=== PATIENT | female | born 1935 | race Two or more races ===

== ENCOUNTER 2017-10-15 13:05 | Emergency (ER) | payer MEDICARE ==
[~2017-10-15] VITALS: Ht 154.9 cm; Wt 63.0 kg
[~2017-10-15 13:05] MED LIST: AMLO5TAB2 PO; FURO-93 PO; OMEP-110 PO; POTA20TA6 PO
[2017-10-15 13:06] VITALS: BP 178/90
== END 2017-10-15 14:44 | disposition home or self-care (01) ==
LOC: ED 14:43
DX: S30.0XXA Contusion of lower back and pelvis, initial encounter (principal); S39.012A Strain of muscle, fascia and tendon of lower back, initial encounter; S09.90XA Unspecified injury of head, initial encounter; M51.36 Other intervertebral disc degeneration, lumbar region; E78.00 Pure hypercholesterolemia, unspecified; I10 Essential (primary) hypertension; E11.9 Type 2 diabetes mellitus without complications; W01.0XXA Fall on same level from slipping, tripping and stumbling without subsequent striking against object, initial encounter; Y93.89 Activity, other specified; Y92.89 Other specified places as the place of occurrence of the external cause; Y99.9 Unspecified external cause status
CPT/HCPCS: 70450; 72110; 72220; 99284

== ENCOUNTER 2017-10-15 20:46 | Emergency (ER) | payer MEDICARE ==
[~2017-10-15] VITALS: Ht 154.9 cm; Wt 62.0 kg
[2017-10-15] MEDS ORDERED: OXYcodone/APAP 5/325MG TABLET PO ONE (21:30)
[2017-10-15] MEDS ORDERED: ONDANSETRON ODT 4 MG PO ONE (21:30)
[2017-10-15] MEDS ORDERED: ONDANSETRON ODT 4 MG ONE (21:39)
[2017-10-15 22:25] VITALS: BP 163/88
== END 2017-10-15 22:27 | disposition home or self-care (01) ==
LOC: ED 21:55
DX: S93.602A Unspecified sprain of left foot, initial encounter (principal); E11.9 Type 2 diabetes mellitus without complications; X58.XXXA Exposure to other specified factors, initial encounter; Y93.89 Activity, other specified; Y92.89 Other specified places as the place of occurrence of the external cause; Y99.9 Unspecified external cause status
CPT/HCPCS: 73630; 99284; Q0162

== ENCOUNTER 2020-09-19 12:45 | Emergency (ER) | payer MEDICARE ==
[~2020-09-19] VITALS: Ht 154.9 cm; Wt 58.3 kg
[~2020-09-19 12:45] MED LIST changes: +AMLO-150 PO; -AMLO5TAB2 PO
[2020-09-19 13:28] VITALS: BP 171/84
--- NOTE | 2020-09-19 13:41 | NUR ---
ECOLOGIST: PT AMBULATORY TO ROOM FROM LOBBY
[2020-09-19 14:01] LABS: BASOPHILS % (AUTO) 0 % (0-1); EOSINOPHILS % (AUTO) 1 % (1-7); LYMPHOCYTES % (AUTO) 34 % (22-44); MEAN CORPUSCULAR HEMOGLOBIN 29.9 pg (27.0-34.8); MEAN CORPUSCULAR HGB CONC 33.2 g/dL (32.4-35.8); MEAN PLATELET VOLUME 7.2 fL (7.4-10.4); MONOCYTES % (AUTO) 9 % (2-9); NEUTROPHILS % (AUTO) 56 % (42-75); PLATELET COUNT 213 x10^3/uL (130-400); RED BLOOD COUNT 5.48 x10^6/uL (3.82-5.3); RED CELL DISTRIBUTION WIDTH 13.4 % (9.6-15.2)
[2020-09-19 14:04] LABS: MD NO
[2020-09-19 14:10] LABS: ALANINE AMINOTRANSFERASE 36 U/L (12-78); ALBUMIN 3.9 g/dL (3.4-5.0); ANION GAP 6 mmol/L (5-15); CALCIUM 9.3 mg/dL (8.5-10.1); CHLORIDE 100 mmol/L (98-107); CREATININE 0.91 mg/dL (0.55-1.02)
[2020-09-19 14:12] LABS: ALKALINE PHOSPHATASE 127 U/L (45-117); BILIRUBIN,TOTAL 0.7 mg/dL (0.2-1.0); TOTAL PROTEIN 8.7 g/dL (6.4-8.2)
[2020-09-19 14:43] LABS: MICROSCOPIC NOT IND
== END 2020-09-19 16:34 | disposition home or self-care (01) ==
LOC: ED 16:30
DX: R10.32 Left lower quadrant pain (principal); E11.65 Type 2 diabetes mellitus with hyperglycemia; I10 Essential (primary) hypertension; E78.00 Pure hypercholesterolemia, unspecified; K21.9 Gastro-esophageal reflux disease without esophagitis
CPT/HCPCS: 36415; 80053; 81003; 85025; 99283

== ENCOUNTER 2020-12-16 12:18 | Emergency (ER) | payer MEDICARE ==
[~2020-12-16] VITALS: Ht 162.6 cm; Wt 50.0 kg
[~2020-12-16 12:18] MED LIST changes: +ASCO500T9 PO; +ASPI325T17 PO; +CHOL10003 PO; +DEXA4TAB66 PO; +LOVA10TA PO; +METF500T17 PO; +ZINC220C7 PO
--- NOTE | 2020-12-16 12:55 | NUR ---
Pt's son's phone number: [phone]
--- NOTE | 2020-12-16 12:59 | NUR ---
provider at bedside.
[2020-12-16] MEDS ORDERED: ASPIRIN 81 MG TABLET CHEW ONE (13:17)
[2020-12-16] MEDS ORDERED: AMLODIPINE 5 MG TABLET ONE (13:18)
[2020-12-16] MEDS ORDERED: AMLODIPINE 5 MG TABLET PO ONE (13:30)
[2020-12-16] MEDS ORDERED: ASPIRIN 81 MG TABLET CHEW PO ONE (13:30)
--- NOTE | 2020-12-16 13:34 | NUR ---
Assisted pt to bathroom- UA collected. Lab at bedside.
--- NOTE | 2020-12-16 13:39 | NUR ---
XR at bedside.
[2020-12-16 13:43] LABS: BASOPHILS % (AUTO) 1 % (0-1); EOSINOPHILS % (AUTO) 1 % (1-7); LYMPHOCYTES % (AUTO) 38 % (22-44); MEAN CORPUSCULAR HGB CONC 33.9 g/dL (32.4-35.8); MEAN PLATELET VOLUME 7.6 fL (7.4-10.4); MONOCYTES % (AUTO) 10 % (2-9); NEUTROPHILS % (AUTO) 50 % (42-75); PLATELET COUNT 225 x10^3/uL (130-400); RED BLOOD COUNT 5.43 x10^6/uL (3.82-5.3); RED CELL DISTRIBUTION WIDTH 15.3 % (9.6-15.2)
[2020-12-16 13:44] LABS: MD NO
[2020-12-16 13:54] LABS: ALANINE AMINOTRANSFERASE 39 U/L (12-78); ALBUMIN 4.2 g/dL (3.4-5.0); ANION GAP 6 mmol/L (5-15); CALCIUM 10.2 mg/dL (8.5-10.1); CHLORIDE 101 mmol/L (98-107)
[2020-12-16 13:59] LABS: ALKALINE PHOSPHATASE 144 U/L (45-117); BILIRUBIN,TOTAL 1.1 mg/dL (0.2-1.0); TOTAL PROTEIN 8.3 g/dL (6.4-8.2); TROPONIN I < 0.015 ng/mL (0.000-0.045)
--- NOTE | 2020-12-16 14:29 | NUR ---
Contacted pt's son who will come to ED and give pt ride home. Informed provider of pt's blood pressures.
[2020-12-16 14:33] VITALS: BP 157/105
== END 2020-12-16 15:00 | disposition home or self-care (01) ==
LOC: ED 13:53
DX: R07.89 Other chest pain (principal); I10 Essential (primary) hypertension; R06.02 Shortness of breath; R00.0 Tachycardia, unspecified; E11.9 Type 2 diabetes mellitus without complications; K21.9 Gastro-esophageal reflux disease without esophagitis; E78.00 Pure hypercholesterolemia, unspecified
CPT/HCPCS: 36415; 71045; 80053; 83690; 83880; 84484; 85025; 93005; 99285

== ENCOUNTER 2020-12-17 08:29 | Emergency (ER) | payer MEDICARE ==
[~2020-12-17] VITALS: Ht 154.9 cm; Wt 59.0 kg
--- NOTE | 2020-12-17 08:41 | NUR ---
pt BIB [facility] from home c/o SOB x1 week. per report, pt was seen here yesterday for same. pt also c/o intermittent sternal CP at 03/25. pt report that she took tylenol this AM with some relief. pt has no cough or resp sx. speaking full sentences without difficulty no family at bedside
--- NOTE | 2020-12-17 08:55 | NUR ---
Dr. Lepe at bedside for eval report to Heriberto BARTHOLOMEW
[2020-12-17 09:14] LABS: MEAN CORPUSCULAR HEMOGLOBIN 30.6 pg (27.0-34.8); MEAN CORPUSCULAR HGB CONC 33.6 g/dL (32.4-35.8); MEAN PLATELET VOLUME 7.5 fL (7.4-10.4); PLATELET COUNT 194 x10^3/uL (130-400); RED BLOOD COUNT 4.97 x10^6/uL (3.82-5.3)
[2020-12-17 09:24] LABS: ALANINE AMINOTRANSFERASE 37 U/L (12-78); ALBUMIN 3.9 g/dL (3.4-5.0); ANION GAP 7 mmol/L (5-15); CALCIUM 8.8 mg/dL (8.5-10.1); CHLORIDE 101 mmol/L (98-107); CREATININE 0.75 mg/dL (0.55-1.02)
[2020-12-17 09:28] LABS: ALKALINE PHOSPHATASE 124 U/L (45-117); BILIRUBIN,TOTAL 1.2 mg/dL (0.2-1.0); TOTAL PROTEIN 7.4 g/dL (6.4-8.2); TROPONIN I < 0.015 ng/mL (0.000-0.045)
--- NOTE | 2020-12-17 09:37 | NUR ---
PT ASSISTED TO [facility]. UA OBTAINED AND SENT TO LAB. PT STATES SHE IS VERY HUNGRY. PROVIDER NOTIFIED.
[2020-12-17 09:38] LABS: MD YES
[2020-12-17 09:46] LABS: BASOS#(MANUAL) 0.05 x10^3/uL (0-0.1); BASOS% (MANUAL) 1 % (0-1); LYMPH#(MANUAL) 1.28 x10^3/uL (1-3.4); LYMPHS% (MANUAL) 25 % (22-44); MONOS#(MANUAL) 0.26 x10^3/uL (0.3-2.7); MONOS% (MANUAL) 5 % (2-9); REACTIVE LYMPHS % (MANUAL) 2 % (0-0); SEG#(MANUAL) 3.42 x10^3/uL (1.8-6.8); SEGS% (MANUAL) 67 % (42-75)
[2020-12-17 09:47] LABS: <PLATELET ESTIMATE> DECREASED; <PLT MORPHOLOGY> NORMAL PLT MORPH; <RBC MORPHOLOGY> NORMAL
[2020-12-17 10:33] LABS: MICROSCOPIC NOT IND
--- NOTE | 2020-12-17 11:08 | NUR ---
FOOD TRAY PROVIDED TO PT. NO OTHER NEEDS AT THIS TIME.
[2020-12-17 11:39] VITALS: BP 162/96
== END 2020-12-17 12:00 | disposition home or self-care (01) ==
LOC: ED 09:23
DX: E11.65 Type 2 diabetes mellitus with hyperglycemia (principal); R07.9 Chest pain, unspecified; R06.02 Shortness of breath; R00.0 Tachycardia, unspecified; I10 Essential (primary) hypertension; K21.9 Gastro-esophageal reflux disease without esophagitis; E78.00 Pure hypercholesterolemia, unspecified
CPT/HCPCS: 36415; 71045; 80053; 81003; 83880; 84484; 85025; 85379; 93005; 99285